=== PATIENT | female | born 1995 | race American Indian/Alaskan Native ===

== ENCOUNTER 2017-01-26 13:02 | Outpatient (CLI) | payer MEDICAID ==
[2017-01-26 13:38] VITALS: BP 108/66
[2017-01-26] MEDS ORDERED: LACTATED RINGERS 500 ML IV ONE (14:49)
== END 2017-01-26 15:15 | disposition home or self-care (01) ==
LOC: TRG 13:02
PROVIDERS: ATTEND Obstetrics & Gynecology
DX: O47.03 False labor before 37 completed weeks of gestation, third trimester (principal); Z3A.36 36 weeks gestation of pregnancy
CPT/HCPCS: 59025

== ENCOUNTER 2017-02-09 11:18 | Outpatient (CLI) | payer MEDICAID ==
[2017-02-09 11:56] VITALS: BP 122/58
== END 2017-02-09 13:00 | disposition home or self-care (01) ==
LOC: TRG 11:18
PROVIDERS: ATTEND Obstetrics & Gynecology
DX: O47.1 False labor at or after 37 completed weeks of gestation (principal); Z3A.38 38 weeks gestation of pregnancy
CPT/HCPCS: 59025

== ENCOUNTER 2019-01-31 18:11 | Emergency (ER) | payer MEDICAID, OTHER ==
[2019-01-31 18:28] VITALS: BP 108/46
--- NOTE | 2019-01-31 18:30 | Emergency Department Report ---
Blank Doc - Documentation Documentation: 23 y/o female concern for IUD being embedded. Seen PCP. [facility] placed IUD. Having abd pain and vaginal bleeding.
[2019-01-31 19:35] LABS: HCG Qualitative,Urine Negative (Negative)
[2019-01-31 19:37] LABS: Bilirubin,Urine NEG (Negative); Blood,Urine LG (Negative); Color,Urine Yellow (Yellow); Mucus,Urine 3+ /HPF; Protein,Urine <15 mg/dL mg/dL (Negative)
--- NOTE | 2019-01-31 22:19 | Ultrasound Report ---
PROCEDURE: Transabdominal pelvic ultrasound. TECHNIQUE: Real-time transabdominal sonography in multiple planes of pelvis was performed with image documentation. HISTORY: concen for IUD placement pelvic pain. COMPARISONS: None. FINDINGS: Image quality is decreased because the patient's bladder was not fully distended. The uterus measures 8.9 cm x 4.3 cm x 6.0 cm. The myometrium appears uniform. The endometrial echo complex appears unifo rm. There is no visible intrauterine device. There is an echogenic linear structure in the vagina. Th is could represent an IUD. Clinical correlation is recommended. Neither ovary is identified. There is no fluid in the cul-de-sac. IMPRESSION: No evidence of an IUD within the uterus. Question IUD within the vagina. This document is electronically signed by Getachew Covington MD., Jan 31 2019 10:16:50 PM ET
== END 2019-01-31 22:20 | disposition left against medical advice (07) ==
LOC: ED 18:11
DX: R10.9 Unspecified abdominal pain (principal); Z53.21 Procedure and treatment not carried out due to patient leaving prior to being seen by health care provider
CPT/HCPCS: 76856; 81001; 81025